=== PATIENT | female | born 1955 | race Asian ===

== ENCOUNTER 2018-10-05 11:09 | Inpatient (IN) | payer MEDICAID ==
[2018-09-25 09:34] LABS: APPEARANCE,URINE CLEAR; BASOPHILS % (AUTO) 1.4 % (0.0-2.0); BILIRUBIN, URINE NEGATIVE (NEGATIVE); COLOR,URINE PALE YELLOW; EOSINOPHILS % (AUTO) 5.1 % (0.0-3.0); GLUCOSE, URINE (UA) NEGATIVE (NEGATIVE); HEMATOCRIT 46.2 % (37.0-47.0); HEMOGLOBIN 15.3 G/DL (12.0-16.0); KETONES,URINE NEGATIVE (NEGATIVE); LEUKOCYTE ESTERASE ,URINE 3+ (NEGATIVE); LYMPHOCYTES % (AUTO) 27.3 % (20.0-45.0); MEAN CORPUSCULAR VOLUME 91 FL (80-99); MONOCYTES % (AUTO) 7.8 % (1.0-10.0); NEUTROPHILS % (AUTO) 58.4 % (45.0-75.0); NITRITE,URINE NEGATIVE (NEGATIVE); PH,URINE 5 (4.5-8.0); PLATELET COUNT 107 K/UL (150-450); PROTEIN,URINE NEGATIVE (NEGATIVE); RED CELL DISTRIBUTION WIDTH 10.3 % (11.6-14.8); UROBILINOGEN,URINE NORMAL MG/DL (0.0-1.0); WHITE BLOOD COUNT 4.8 K/UL (4.8-10.8)
[2018-09-25 09:45] LABS: ANION GAP 4 mmol/L (5-15); BLOOD UREA NITROGEN 16 mg/dL (7-18); CALCIUM 9.9 MG/DL (8.5-10.1); CARBON DIOXIDE 31 MMOL/L (21-32); CHLORIDE 103 MMOL/L (98-107); POTASSIUM 4.4 MMOL/L (3.5-5.1); SODIUM 138 MMOL/L (136-145)
--- NOTE | 2018-09-26 15:14 | Cardiology Report ---
APPROVED REPORT EKG Measurement Heart [id number] OR 180P63 [id number] Normal sinus rhythm Normal ECG
--- NOTE | 2018-10-01 17:15 | Pre-op HX & Phy Repo 2 SIG ---
DATE OF SURGERY: 10/05/2018 HISTORY OF PRESENT ILLNESS: The patient is a 63-year-old female in overall stable health with stage II invasive ductal carcinoma of the left breast. The patient presented with a left breast mass and needle biopsy of the breast and of an abnormal axillary lymph node revealed invasive ductal carcinoma of the breast, metastatic to the axillary lymph node. The patient has small breasts with a 3 centimeter hard mass and is scheduled to undergo left modified radical mastectomy as she is not a good candidate for breast conservation therapy, which the patient understands. The patient had neoadjuvant chemotherapy which was discontinued in late July after multiple treatments due to hepatitis B. The patient has been cleared by Oncology and is stable now to proceed with surgery. PAST MEDICAL HISTORY: Metformin for diabetes and losartan for hypertension. ALLERGIES: None. OPERATIONS: Appendectomy and removal of ovarian cyst. PHYSICAL EXAMINATION: GENERAL: The patient is 5 foot 3 inches, 129 pounds. HEENT: Within normal limits. LUNGS: Clear. HEART: Regular rhythm. BREASTS: There is a 3 centimeter hard mass in the upper outer quadrant of the left breast extending to the areolar area. The right breast is unremarkable. There is no palpable axillary or supraclavicular lymphadenopathy on either side. ABDOMEN: Soft. PELVIC: Per primary care physician. RECTAL: Per primary care physician. EXTREMITIES: Without edema. NEUROLOGIC: Physiologic. IMPRESSION: Invasive ductal carcinoma left breast with metastasis to axillary lymph node, estrogen and progesterone receptor positive, HER2 negative. PLAN: Full discussion has been had with the patient regarding the nature of her condition, the nature of the surgery, indications, alternatives, options, and risks including bleeding, infection, injury to adjacent structures or organs, scarring, need for drains, potential candidate for reconstruction in a delayed fashion, etc. All questions have been answered. She understands and agrees to proceed. Mauricio Nathan M.D. DR: Jaret JOB#: [id number] CC: RAYMOND
[~2018-10-05] VITALS: Ht 162.6 cm; Wt 64.9 kg
[2018-10-05] VITALS (12 sets, daily range): BP systolic 106–139; BP diastolic 63–81
--- NOTE | 2018-10-05 11:49 | Pre-Procedure Note/Attestation ---
Pre-Procedure Note/Attestation Complete Prior to Procedure Planned Procedure: left Procedure Narrative: left modified radical mastectomy Indications for Procedure Pre-Operative Diagnosis: invasive ductal carcinoma left breast metastatic to axillary lymph node Attestation I attest that I discussed the nature of the procedure; its benefits; risks and complications; and alternatives (and the risks and benefits of such alternatives ), prior to the procedure, with the patient (or the patient's legal veterans contact representative). I attest that, if there was a reasonable possibility of needing a blood transfusion, the patient (or the patient's legal veterans contact representative) was given the [facility] standardized written summary, pursuant to the Ruben [place] Blood Safety Act ([place] Health and Safety Code # 1645, as amended). I attest that I re-evaluated the patient just prior to the surgery and that there has been no change in the patient's H&P, except as documented below:none Mauricio Nathan MD Oct 05, 2018 11:49
[2018-10-05] MEDS ORDERED: LOSARTAN POTAS100 MG ORAL (11:59)
[2018-10-05] MEDS ORDERED: Lidocaine 1% 10mg/ml/Epi 0.005mg/ml 30ml vial INJ ONE (12:31)
[2018-10-05] MEDS ORDERED: Bupivacaine w/Epi 0.5% 30ml Vial INJ ONE (12:31)
[2018-10-05] MEDS ORDERED: Bacitracin 50000 Units Vial ONE (12:32)
[2018-10-05] MEDS ORDERED: NeoSporin Gu Irrig 1ml Amp IRRIG ONE (12:32)
[2018-10-05] MEDS ORDERED: fentaNYL 100 mcg/2 mL IV ONE (12:57)
[2018-10-05] MEDS ORDERED: Midazolam 2mg/2ml Inj ONE (12:57)
[2018-10-05] MEDS ORDERED: Propofol 200mg/20ml IV ONE (12:58)
[2018-10-05] MEDS ORDERED: Lidocaine 1% MPF 10mg/ml 5ml ONE (12:58)
[2018-10-05] MEDS ORDERED: Sodium Chloride 10ml vial INJ ONE (12:58)
[2018-10-05] MEDS ORDERED: NS Irrig 1000ml ONE (13:00)
[2018-10-05] MEDS ORDERED: Sterile Water Irrig 1000ml IRRIG ONE (13:00)
[2018-10-05] MEDS ORDERED: LR 1000ml ONE (13:00)
[2018-10-05] MEDS ORDERED: ePHEDrine 50mg/ml Inj ONE (13:00)
[2018-10-05] MEDS ORDERED: LR 1000ml 1,000 ML IVLG SCH (13:41)
[2018-10-05] MEDS ORDERED: DiphenhydrAMINE 50mg/ml Inj IVP PRN (13:45)
[2018-10-05] MEDS ORDERED: Hydromorphone 0.5mg/0.5ml inj IVP PRN (13:45)
[2018-10-05] MEDS ORDERED: Midazolam 2mg/2ml Inj IVP PRN (13:45)
--- NOTE | 2018-10-05 13:54 | Anethesia Preoperative Eval ---
Anesthesia Pre-op PMH/ROS General Date of Evaluation: Oct 05, 2018 Time of Evaluation: 13:00 Anesthesiologist: Owen ASA Score: ASA 3 Mallampati Score Class I : Soft palate, uvula, fauces, pillars visible Class II: Soft palate, uvula, fauces visible Class III: Soft palate, base of uvula visible Class IV: Only hard plate visible Mallampati Classification: Class II Surgeon: Jac Diagnosis: Left breast CA Surgical Procedure: Left breast modified radical mastectomy Family History: no anesthesia problems Allergies: Coded Allergies: No Known Allergies (Unverified , 10/01/18) Medications: see eMAR Patient NPO?: Yes NPO Date: Oct 04, 2018 NPO Time: 20:00 Past Medical History Cardiovascular: Reports: HTN; Denies: CAD, MS, valve dz, arrhythmia, other Pulmonary: Denies: asthma, COPD, JONEL, other Gastrointestinal/Genitourinary: Reports: GERD; Denies: CRI, ESRD, other Neurologic/Psychiatric: Denies: dementia, CVA, depression/anxiety, TIA, other Endocrine: Reports: DM; Denies: hypothyroidism, steroids, other HEENT: Denies: cataract (L), cataract (R), glaucoma, [place] (L), [place] (R), other Hematology/Immune: Denies: anemia, DVT, bleeding disorder, other Musculoskeletal/Integumentary: Denies: OA, RA, DJD, DDD, edema, other PMH Narrative: HTN, DM, GERD, breast CA PSxH Narrative: T&A, ovarian cystectomy Anesthesia Pre-op Phys. Exam Physician Exam Last Vital Signs Date Time Temp Pulse Resp B/P (MAP) Pulse Ox O2 Delivery O2 Flow Rate FiO2 10/05/18 12:06 97.9 93 20 139/81 98 Room Air Constitutional: NAD Neurologic: CN 2-12 intact Cardiovascular: RRR, no M/R/G Respiratory: CTA Gastrointestinal: S/NT/ND Airway Exam Mallampati Score: Class II MO: full ROM: full Dentures: upper - Partial Anesthesia Pre-op A/P Labs WNL Studies Pre-op Studies: EKG - NSR Risk Assessment & Plan Assessment: Hypertensive, diabetic female for modified radical mastectomy (left) Plan: GA, LMA Status Change Before Surgery: No Pre-Antibiotics Drug: Ancef 1 gm Given Within 1 Hr of Incision: Yes Time Given: 13:15 Ruben Weaver MD Oct 05, 2018 13:54
--- NOTE | 2018-10-05 15:03 | Immediate Post-Op Evaluation ---
Immediate Post-Op Evalulation Immediate Post-Op Evalulation Procedure: Left modified radical mastectomy Date of Evaluation: Oct 05, 2018 Time of Evaluation: 15:05 IV Fluids: 700 Estimated Blood Loss: 30 Blood Pressure Systolic: 120 Blood Pressure Diastolic: 64 Pulse Rate: 100 Respiratory Rate: 20 O2 Sat by Pulse Oximetry: 100 Temperature (Fahrenheit): 97.1 Pain Score (1-10): 0 Nausea: No Vomiting: No Complications No complication Patient Status: awake, patent, none Hydration Status: adequate Drug: Ancef Given Within 1 Hr of Incision: Yes Time Given: 13:15 Ruben Weaver MD Oct 05, 2018 15:03
--- NOTE | 2018-10-05 15:05 | Brief Operative Note ---
Immediate Post Operative Note Operative Note Pre-op Diagnosis: invasive ductal carcinoma left breast metastatic to axillary lymph node Procedure: left modified radical mastectomy Post-op Diagnosis: same Post-op Diagnosis: same as pre-op Findings: consistent w/pre-op dx studies Surgeon: cindi Anesthesiologist: yoav Anesthesia: general Specimen: yes - left breast and axillary nodes Complications: none Condition: stable Fluids: see anesthesia record Estimated Blood Loss: minimal Drains: BRUNILDA - BRUNILDA x 2 Implant(s) used?: No Mauricio Nathan MD Oct 05, 2018 15:05
[2018-10-05] MEDS ORDERED: HYDROmorphone 1mg/ml Carpuject SUBQ PRN (17:01)
[2018-10-05] MEDS ORDERED: Norco 5mg/325mg tab ORAL PRN (17:01)
[2018-10-05] MEDS: D5 1/2NS w/KCl 20mEq 1,000 ML IV SCH (17:45)
[2018-10-05] MEDS: ceFAZolin sod 1 GM in D5W 55 ML IV SCH (20:59)
--- NOTE | 2018-10-05 22:45 | Operative Note - Dictated ---
DATE OF OPERATION: 10/05/2018 SURGEON: Mauricio Nathan M.D. MARKET GARDEN WORKER: None. ANESTHESIOLOGIST: Ruben Weaver M.D. TYPE OF ANESTHESIA: General. PREOPERATIVE DIAGNOSIS: Invasive ductal carcinoma, left breast with metastasis to axillary lymph node. POSTOPERATIVE DIAGNOSIS: Invasive ductal carcinoma, left breast with metastasis to axillary lymph node. OPERATION PERFORMED: Left modified radical mastectomy. DESCRIPTION OF PROCEDURE: The patient was taken to the operating room and under general anesthesia with sequential compression device stockings in place and receiving intravenous antibiotics, she was prepped and draped in the usual fashion incorporating the left upper extremity in the field. The patient had a large 3 x 4 cm mass in the central and upper outer quadrant of the left breast. A transverse elliptical Georgi incision was outlined and then flaps dissected superiorly to clavicle, medially to sternum, inferiorly to costal margin, and laterally to latissimus dorsi. Marking sutures were placed to orient the specimen for pathology. The breast was resected including the pectoralis fascia and left attached to the axillary contents. The clavipectoral fascia was incised and the lower level axillary dissection performed using hemoclips and cautery. The specimen was removed on block and given to pathology who evaluated and found margins to be clear. The field was irrigated with sterile water and antibiotic solution, and hemostasis carefully secured with cautery. Two 19-mm round Jone drains were placed through stab incisions inferior and lateral, one under the flaps and one into the axilla. each sutured to the skin with a 2-0 nylon suture. The incision was closed with interrupted inverted deep dermal subcutaneous sutures of 2-0 Vicryl followed by nannette. Dry sterile dressings were applied. The Yonas-Centeno Jone drain bulbs were compressed and compression was maintained with good apposition of the flaps to the chest wall and the axilla. The patient tolerated the procedure well and left the operating room in good condition. Mauricio Nathan M.D. DR: CINDY JOB#: [id number] CC:
[2018-10-06] VITALS (7 sets, daily range): BP systolic 11–139; BP diastolic 65–76
[2018-10-06] MEDS: ceFAZolin sod 1 GM in D5W 55 ML IV SCH (05:57)
[2018-10-06] MEDS: D5 1/2NS w/KCl 20mEq 1,000 ML IV SCH (06:34)
[2018-10-06 07:43] LABS: HEMATOCRIT 34.4 % (37.0-47.0); HEMOGLOBIN 12.2 G/DL (12.0-16.0); MEAN CORPUSCULAR VOLUME 90 FL (80-99); PLATELET COUNT 69 K/UL (150-450); RED BLOOD COUNT 3.83 M/UL (4.20-5.40); WHITE BLOOD COUNT 5.7 K/UL (4.8-10.8)
[2018-10-06 07:51] LABS: ANION GAP 7 mmol/L (5-15); BLOOD UREA NITROGEN 16 mg/dL (7-18); CARBON DIOXIDE 28 MMOL/L (21-32); CHLORIDE 104 MMOL/L (98-107); POTASSIUM 4.2 MMOL/L (3.5-5.1); SODIUM 139 MMOL/L (136-145)
--- NOTE | 2018-10-06 08:59 | General Progress Note ---
Progress Note Progress Note AVSS Denies pain thia AM. tolerated ambulation to bathroom, eating okay Incision clean, no ecchymosis/hematoma BRUNILDA: 40+50 sanguinous WBC 5700 Hgb 12.2 Platelets 69,000 (107,000 pre-op) Imp.Stable with thrombocytopenia, ? due to recently stopped chemotherapy Plan: Monitor in hospital another day Teach patient re care of BRUNILDA drains and monitoring output f/u labs in AM ambulate with assistance in hallways Mauricio Nathan MD Oct 06, 2018 08:59
[2018-10-06] MEDS: Losartan 50mg tab ORAL SCH (09:37)
[2018-10-06] MEDS ORDERED: Tubing IV Secondary IV ONE (15:00)
[2018-10-06] MEDS: Chloraseptic Spray 20mL Bottle ORAL PRN ×2 (15:08→22:52)
[2018-10-07 00:16] VITALS: BP 133/76
[2018-10-07 04:14] VITALS: BP 139/83
[2018-10-07 05:35] LABS: HEMATOCRIT 34.5 % (37.0-47.0); MEAN CORPUSCULAR VOLUME 90 FL (80-99); PLATELET COUNT 67 K/UL (150-450); RED BLOOD COUNT 3.85 M/UL (4.20-5.40); RED CELL DISTRIBUTION WIDTH 10.2 % (11.6-14.8); WHITE BLOOD COUNT 3.3 K/UL (4.8-10.8)
[2018-10-07 05:51] LABS: ANION GAP 8 mmol/L (5-15); BLOOD UREA NITROGEN 14 mg/dL (7-18); CALCIUM 8.9 MG/DL (8.5-10.1); CARBON DIOXIDE 29 MMOL/L (21-32); CHLORIDE 104 MMOL/L (98-107); SODIUM 140 MMOL/L (136-145)
[2018-10-07 08:00] VITALS: BP 125/73
[2018-10-07] MEDS: Losartan 50mg tab ORAL SCH (08:45)
[2018-10-07 12:00] VITALS: BP 124/65
--- NOTE | 2018-10-07 12:07 | General Progress Note ---
Progress Note Progress Note T100.6 yesterday but afebrile overnight. Feels well , ambulates freely, has learned to care for drains Incision clean, dry no ecchymosis. BRUNILDA 77+69 but overnight 12 hours 22+16 WBC 3300 Hgb stable 12 Platelets 67,000 stable BMP-wnl I discussed the labs with her oncologist Dr. Eduardo Dia who will f/u with patient 10/12 Imp. Stable Plan: discharge supplies/instructions/limitations provided/discussed Rx - 0 f/u office 10/12 - call Mauricio Araujo MD Oct 07, 2018 12:07
[2018-10-07] MEDS ORDERED: Flu Vaccine (Alfuria) for Pts Less than 65 Years old IM ONE (13:30)
--- NOTE | 2018-10-08 07:42 | Discharge Summary ---
Discharge Summary Discharge Summary _ DATE OF ADMISSION: 10/05/2018 DATE OF DISCHARGE: 10/07/2018 BRIEF HOSPITAL COURSE: The patient is a 63-year-old female, with history of diabetes and hypertension, in overall stable health, with stage II invasive ductal carcinoma of the left breast. The patient presented with a left breast mass and needle biopsy of the breast and abnormal axillary lymph node revealed invasive ductal carcinoma of the breast, metastatic to the axillary lymph node. She underwent chemotherapy which was discontinued in late July after multiple treatments due to hepatitis B. She underwent left modified radical mastectomy. She tolerated procedure well. Postoperatively she was given pain management. She was given incentive spirometer. She was placed on SCDs for DVT prophylaxis. She had low-grade fever which eventually resolved. She was ambulating well. Incision was clean and dry with no ecchymosis. She had stable platelet count. She was instructed on how to care for the drains. She was eventually cleared for discharge home. PREOPERATIVE DIAGNOSIS: Invasive ductal carcinoma, left breast with metastasis to axillary lymph node. POSTOPERATIVE DIAGNOSIS: Invasive ductal carcinoma, left breast with metastasis to axillary lymph node. OPERATION PERFORMED: Left modified radical mastectomy. DISPOSITION: Patient was discharged home. DISCHARGE MEDICATIONS: Refer to Discharge Medication List. DISCHARGE INSTRUCTIONS: Follow up in office and Dr. Eduardo Dia on 10/12/2018. I have been assigned to dictate discharge summary on this account, and I was not involved in the patient's management. Cherie Vu NP Oct 08, 2018 07:42
== END 2018-10-07 13:30 | disposition home or self-care (01) | DRG 362 ==
LOC: SUR 11:09 → 3E 15:57
PROC: 07B60ZZ Excision of Left Axillary Lymphatic, Open Approach (ICD-10-PCS; 2018-10-05)
PROC: 0HTU0ZZ Resection of Left Breast, Open Approach (ICD-10-PCS; principal; 2018-10-05 13:00)
DX: C50.812 Malignant neoplasm of overlapping sites of left female breast (principal); C77.3 Secondary and unspecified malignant neoplasm of axilla and upper limb lymph nodes; Z17.0 Estrogen receptor positive status [ER+]; E11.9 Type 2 diabetes mellitus without complications; I10 Essential (primary) hypertension; Z79.84 Long term (current) use of oral hypoglycemic drugs; Z86.19 Personal history of other infectious and parasitic diseases; Z23 Encounter for immunization
CPT/HCPCS: 36415; 80048; 81001; 82962; 85007; 85025; 85610; 85730; 90686; 93005; J2250; J2405

== ENCOUNTER 2020-05-04 08:30 | Day surgery (SDC) | payer MEDICAID ==
[2020-05-02 10:04] LABS: APPEARANCE,URINE CLEAR; BILIRUBIN, URINE NEGATIVE (NEGATIVE); COLOR,URINE PALE YELLOW; GLUCOSE, URINE (UA) NEGATIVE (NEGATIVE); HEMATOCRIT 44.2 % (37.0-47.0); HEMOGLOBIN 13.9 G/DL (12.0-16.0); KETONES,URINE NEGATIVE (NEGATIVE); LEUKOCYTE ESTERASE ,URINE NEGATIVE (NEGATIVE); MEAN CORPUSCULAR VOLUME 96 FL (80-99); NITRITE,URINE NEGATIVE (NEGATIVE); PH,URINE 5 (4.5-8.0); PLATELET COUNT 99 K/UL (150-450); PROTEIN,URINE NEGATIVE (NEGATIVE); RED BLOOD COUNT 4.61 M/UL (4.20-5.40); RED CELL DISTRIBUTION WIDTH 11.9 % (11.6-14.8); UROBILINOGEN,URINE NORMAL MG/DL (0.0-1.0); WHITE BLOOD COUNT 4.7 K/UL (4.8-10.8)
[2020-05-02 10:23] LABS: ANION GAP 9 mmol/L (5-15); BLOOD UREA NITROGEN 24 mg/dL (7-18); CALCIUM 9.8 MG/DL (8.5-10.1); CARBON DIOXIDE 28 MMOL/L (21-32); CHLORIDE 102 MMOL/L (98-107); CREATININE 1.2 MG/DL (0.55-1.30); POTASSIUM 4.2 MMOL/L (3.5-5.1); SODIUM 139 MMOL/L (136-145)
--- NOTE | 2020-05-02 10:47 | Diagnostic Imaging Report ---
Procedure: XRAY Chest 2v Reason for study: Reason For Exam: COUGH Comparison films: None. FINDINGS: Frontal and lateral views of the chest are obtained. Vascularity is normal. The lung lovelace are clear bilaterally. Cardiac and mediastinal silhouette are within normal limits. CP angles are sharp. Surgical clips noted in the left axilla. IMPRESSION: NO ACUTE CARDIOPULMONARY DISEASE.
--- NOTE | 2020-05-03 12:00 | Pre-op HX & Phy Repo 2 SIG ---
DATE OF ADMISSION: 05/04/2020 DATE OF SURGERY: Scheduled for outpatient surgery, 05/04/2020. HISTORY OF PRESENT ILLNESS: The patient is a 65-year-old female in overall stable health with two suspicious lesions of the right breast. She is scheduled to undergo right breast partial mastectomy with preoperative stereotactic needle localization x2. The patient underwent left modified radical mastectomy in September 2018 for invasive ductal carcinoma with two positive lymph nodes. She received chemotherapy and radiation therapy. She more recently developed an abnormality of the right breast at 1 o'clock 3 cm from the nipple with core biopsy revealing atypical ductal hyperplasia. In addition, in the right breast at 3 o'clock posterior depth there is a 6 mm suspicious area of microcalcifications. These two lesions will be excised with the surgery. PAST MEDICAL HISTORY: . MEDICATIONS: Letrozole, statin, losartan, in the past metformin. ALLERGIES: None. OPERATIONS: In addition to the left modified radical mastectomy in September 2018, she has undergone appendectomy and excision of ovarian cyst. PHYSICAL EXAMINATION: GENERAL: A well-developed and well-nourished patient, 5 feet 5 inches, 123 pounds. HEENT: Within normal limits. LUNGS: Clear. HEART: Regular rhythm. BREASTS: Left chest wall status post modified radical mastectomy without nodules. Right breast without palpable mass. There is no axillary or supraclavicular lymphadenopathy. ABDOMEN: Soft. PELVIC: Per primary care. RECTAL: Per primary care. EXTREMITIES: Without edema. NEUROLOGIC: Physiologic. IMPRESSION: 1. Atypical ductal hyperplasia, right breast and suspicious microcalcification cluster, right breast. 2. History of left modified radical mastectomy in September 2018 with positive lymph nodes. PLAN: Right breast partial mastectomy with preoperative stereotactic needle localization x2. I have had a full discussion with the patient regarding the nature of the surgery, indications, alternatives, options, and risks including bleeding, infection, scarring or distortion of breast or nipple, need for additional surgery or treatments based on final pathology, etc. All questions have been answered. She understands and agrees to proceed. Mauricio Nathan M.D. DR: NURY JOB#: [id number] CC:
[~2020-05-04] VITALS: Ht 163.8 cm; Wt 57.2 kg
[2020-05-04] VITALS (11 sets, daily range): BP systolic 123–157; BP diastolic 56–84
[~2020-05-04 08:30] MED LIST: LETROZOLE2.5 MG ORAL; LOSARTAN POTAS100 MG ORAL; METFORMIN HCL500 M1 ORAL; PRAVACHOL40 MG ORAL; VITAMIN D PO
[2020-05-04] MEDS ORDERED: Bacitracin 50000 Units Vial ONE (09:51)
[2020-05-04] MEDS ORDERED: NeoSporin Gu Irrig 1ml Amp IRRIG ONE (09:51)
--- NOTE | 2020-05-04 09:51 | Pre-Procedure Note/Attestation ---
Pre-Procedure Note/Attestation Complete Prior to Procedure Planned Procedure: right Procedure Narrative: right breast partial mastectomy with pre-operative needle localization x 2 Indications for Procedure Pre-Operative Diagnosis: Right breast atypical ductal hyperplasia and suspicious microcalcification Attestation I attest that I discussed the nature of the procedure; its benefits; risks and complications; and alternatives (and the risks and benefits of such alternatives ), prior to the procedure, with the patient (or the patient's legal field representative/health education). I attest that, if there was a reasonable possibility of needing a blood transfusion, the patient (or the patient's legal field representative/health education) was given the [facility] standardized written summary, pursuant to the [place] Blood Safety Act ([place] Health and Safety Code # 1645, as amended). I attest that I re-evaluated the patient just prior to the surgery and that there has been no change in the patient's H&P, except as documented below: none Mauricio Nathan MD May 04, 2020 09:51
[2020-05-04] MEDS ORDERED: Midazolam 2mg/2ml Inj ONE (10:28)
[2020-05-04] MEDS ORDERED: fentaNYL 100 mcg/2 mL IV ONE (10:28)
[2020-05-04] MEDS ORDERED: NS Irrig 1000ml ONE (10:30)
[2020-05-04] MEDS ORDERED: Sterile Water Irrig 1000ml IRRIG ONE (10:30)
[2020-05-04] MEDS ORDERED: LR 1000ml ONE (10:30)
[2020-05-04] MEDS ORDERED: Lidocaine 1% MPF 10mg/ml 5ml ONE (10:33)
[2020-05-04] MEDS ORDERED: Sodium Chloride 10ml vial INJ ONE (11:11)
[2020-05-04] MEDS ORDERED: ePHEDrine 50mg/ml Inj ONE (11:11)
[2020-05-04] MEDS ORDERED: LR 1000ml 1,000 ML IVLG SCH (11:20)
--- NOTE | 2020-05-04 11:20 | Anethesia Preoperative Eval ---
Anesthesia Pre-op PMH/ROS General Date of Evaluation: May 04, 2020 Time of Evaluation: 10:30 Anesthesiologist: Augustine ASA Score: ASA 2 Mallampati Score Class I : Soft palate, uvula, fauces, pillars visible Class II: Soft palate, uvula, fauces visible Class III: Soft palate, base of uvula visible Class IV: Only hard plate visible Mallampati Classification: Class II Surgeon: Jac Diagnosis: R breast CA Surgical Procedure: R breast partial mastectomy Anesthesia History: none, emergence delirium Family History: no anesthesia problems Allergies: Coded Allergies: No Known Allergies (Unverified , 05/04/20) Medications: see eMAR Patient NPO?: Yes Past Medical History Cardiovascular: Reports: HTN - stable; Denies: CAD, ID, valve dz, arrhythmia, other Pulmonary: Denies: asthma, COPD, JONEL, other Gastrointestinal/Genitourinary: Reports: GERD - mild; Denies: CRI, ESRD, other Neurologic/Psychiatric: Reports: depression/anxiety; Denies: dementia, CVA, TIA, other Endocrine: Reports: DM - stable on pills; Denies: hypothyroidism, steroids, other HEENT: Denies: cataract (L), cataract (R), glaucoma, [place] (L), [place] (R), other Hematology/Immune: Reports: anemia - mild; Denies: DVT, bleeding disorder, other Musculoskeletal/Integumentary: Denies: OA, RA, DJD, DDD, edema, other PMH Narrative: as above PSxH Narrative: L mastectomy, ovarian cyst Anesthesia Pre-op Phys. Exam Physician Exam Last Vital Signs Date Time Temp Pulse Resp B/P (MAP) Pulse Ox O2 Delivery O2 Flow Rate FiO2 05/04/20 09:07 Room Air 05/04/20 09:04 97.4 85 16 147/81 98 Constitutional: NAD Neurologic: CN 2-12 intact Cardiovascular: RRR, no M/R/G Respiratory: CTA Gastrointestinal: S/NT/ND Airway Exam Mallampati Score: Class II MO: limited Neck: stiff ROM: limited Teeth: missing Dentures: no upper, no lower Anesthesia Pre-op A/P Labs see chart Studies Pre-op Studies: EKG - NSR Risk Assessment & Plan Assessment: ASA 2 Plan: GA with LMA Status Change Before Surgery: No Pre-Antibiotics Drug: Ancef 1gr. Given Within 1 Hr of Incision: Yes Time Given: 11:02 Salvatore Bradshaw MD May 04, 2020 11:20
[2020-05-04] MEDS ORDERED: Hydromorphone 0.5mg/0.5ml inj IVP PRN (11:30)
[2020-05-04] MEDS ORDERED: DiphenhydrAMINE 50mg/ml Inj IVP PRN (11:30)
[2020-05-04] MEDS ORDERED: Ketorolac 30mg Inj IV PRN (11:30)
--- NOTE | 2020-05-04 11:50 | Brief Operative Note ---
Immediate Post Operative Note Operative Note Pre-op Diagnosis: Right breast atypical ductal hyperplasia and suspicious microcalcification Procedure: right breast partial mastectomy with pre-op needle localization x 2 Post-op Diagnosis: same Post-op Diagnosis: same as pre-op Findings: consistent w/pre-op dx studies Surgeon: cindi Anesthesiologist: sandy Specimen: yes - right breast tissue Complications: none Condition: stable Fluids: see anesthesia record Estimated Blood Loss: minimal Drains: none Implant(s) used?: No Mauricio Nathan MD May 04, 2020 11:50
--- NOTE | 2020-05-04 11:59 | Immediate Post-Op Evaluation ---
Immediate Post-Op Evalulation Immediate Post-Op Evalulation Procedure: R breast partial mastectomy Date of Evaluation: May 04, 2020 Time of Evaluation: 11:58 IV Fluids: 1000 Blood Products: none Estimated Blood Loss: min Urinary Output: none Blood Pressure Systolic: 124 Blood Pressure Diastolic: 64 Pulse Rate: 86 Respiratory Rate: 20 O2 Sat by Pulse Oximetry: 99 Temperature (Fahrenheit): 97.6 Pain Score (1-10): 1 Nausea: No Vomiting: No Complications none Patient Status: reacts, patent, none Hydration Status: adequate Salvatore Bradshaw MD May 04, 2020 11:59
[2020-05-04] MEDS ORDERED: HYDROmorphone 1mg/ml Carpuject SUBQ PRN (12:00)
[2020-05-04] MEDS ORDERED: Tylenol #3 tab (300mg/30mg) ORAL PRN (12:00)
[2020-05-04] MEDS ORDERED: HYDROcodone/Acetamin 5/325 tab ORAL PRN (12:00)
--- NOTE | 2020-05-04 14:45 | Operative Note - Dictated ---
DATE OF OPERATION: 05/04/2020 SURGEON: Mauricio Nathan MD MANAGER DEVELOPMENTAL: None. ANESTHESIOLOGIST: Salvatore Bradshaw MD TYPE OF ANESTHESIA: General. PREOPERATIVE DIAGNOSIS: Right breast atypical ductal hyperplasia and suspicious microcalcifications. POSTOPERATIVE DIAGNOSIS: Right breast atypical ductal hyperplasia and suspicious microcalcifications. OPERATION PERFORMED: Right breast partial mastectomy with preoperative needle localization x2. DESCRIPTION OF PROCEDURE: The patient was taken to the operating room and under general anesthesia with sequential compression device stockings in place, she was prepped and draped in usual fashion. Both lesions were adjacent in the upper inner quadrant. First at 1 o'clock and the second at 3 o'clock. A curvilinear incision was made achieving hemostasis with cautery. Flaps were dissected circumferentially. Both wires were brought into the field. The incision was deepened to the chest wall and then the appropriate sector of tissue was resected incorporating both wires with good posterior margin. The specimen was oriented with sutures placed anterior, superior, and medial. Specimen radiograph was obtained, which confirmed the presence of both lesions in the specimen. Hemostasis was carefully achieved with cautery in the field, irrigated with sterile water. Incision was closed with interrupted 2-0 Vicryl deep dermal subcutaneous sutures followed by continuous 4-0 Monocryl subcuticular suture. Mastisol and half-inch Steri-Strips were applied followed by dry sterile dressing. Final sponge and needle counts were correct. The patient tolerated the procedure well and left the operating room in good condition. Mauricio Nathan M.D. DR: NURY JOB#: [id number] CC:
--- NOTE | 2020-05-04 15:22 | 48 Hour Post Anesthesia Eval ---
Post Anesthesia Evaluation Procedure: R breast partial mastectomy Date of Evaluation: May 04, 2020 Time of Evaluation: 15:20 Blood Pressure Systolic: 136 0: 78 Pulse Rate: 64 Respiratory Rate: 18 Temperature (Fahrenheit): 97.6 O2 Sat by Pulse Oximetry: 98 Airway: patent Nausea: No Vomiting: No Pain Intensity: 2 Hydration Status: adequate Cardiopulmonary Status: stable Mental Status/LOC: patient returned to baseline Follow-up Care/Observations: n/a Post-Anesthesia Complications: none Follow-up care needed: ready to discharge Salvatore Bradshaw MD May 04, 2020 15:22
[2020-05-04] MEDS ORDERED: D5 1/2NS 1,000 ML IV SCH (17:00)
== END 2020-05-04 13:35 | disposition home or self-care (01) ==
LOC: SUR 08:30
DX: N60.91 Unspecified benign mammary dysplasia of right breast (principal); I10 Essential (primary) hypertension; K21.9 Gastro-esophageal reflux disease without esophagitis; F32.9 Major depressive disorder, single episode, unspecified; F41.9 Anxiety disorder, unspecified; E11.9 Type 2 diabetes mellitus without complications; D64.9 Anemia, unspecified; Z79.899 Other long term (current) drug therapy; Z90.89 Acquired absence of other organs
CPT/HCPCS: 19301; 36415; 71046; 80048; 81001; 85007; 85025; 85610; 85730; 93005; 94003; J0690; J1885; J2250; J2704; J3010; J7120; Z7512; 94150